=== PATIENT | male | born 1980 | race Caucasian/White ===

== ENCOUNTER 2024-05-16 15:50 | Emergency (ER) | payer OTHER, SELFPAY ==
[2024-05-16 15:51] VITALS: BP 156/95
[2024-05-16 17:14] VITALS: BMI 30.6
[2024-05-16 18:03] LABS: % Basophils 0.4 % (0-2); % Eosinophils 0.8 % (0-6); % Immature Granulocytes 0.5 % (0-0.5); % Lymphocytes 8.5 % (20.5-51.1); % Monocytes 8.1 % (1.7-9.3); % Neutrophils 81.7 % (42.2-75.2); Absolute Basophils 0.1 10^3/uL (0-0.2); Absolute Eosinophils 0.1 10^3/uL (0-0.7); Absolute Immature Granulocytes 0.1 10^3/uL (0-0.05); Absolute Lymphocytes 1.3 10^3/uL (1.2-3.4); Absolute Monocytes 1.2 10^3/uL (0.1-0.6); Absolute Neutrophils 11.9 10^3/uL (1.4-6.5); Hematocrit 41.5 % (39.0-52.0); Hemoglobin 14.6 g/dL (13.0-18.0); Mean Corp Hgb Conc. 35.2 g/dL (33.0-37.0); Mean Corpuscular Hgb 30.2 pg (27.0-31.0); Mean Corpuscular Volume 85.7 fL (80.0-94.0); Mean Platelet Volume 9.2 fL (7.4-10.4); Nucleated Red Blood Cells % 0 % (-); Platelet Count 354 10^3/uL (130-400); Red Blood Cell Count 4.84 10^6/uL (4.70-6.10); Red Cell Dist. Width 14.5 % (11.5-14.5); Urine Albumin Negative (Neg - Trace); Urine Bilirubin Negative (Negative); Urine Character Clear (Clear); Urine Color Yellow; Urine Glucose Negative (Negative); Urine Ketone Negative (Negative); Urine Leukocyte Trace (Negative); Urine Nitrite Negative (Negative); Urine Occult Blood Negative (Negative); Urine Specific Gravity 1.015 (<1.030); Urine Urobilinogen Negative (Neg - 1+); White Blood Cell Count 14.6 10^3/uL (4.8-10.8)
[2024-05-16 18:17] LABS: ALT (SGPT) 89 U/L (0-50); AST (SGOT) 71 U/L (17-59); Albumin 3.7 g/dl (3.5-5.0); Alkaline Phosphatase 60 U/L (38-126); Blood Urea Nitrogen 22 mg/dl (9-20); Calcium 10.5 mg/dl (8.4-10.2); Carbon Dioxide 31 mmol/L (22-30); Chloride 100 mmol/L (98-107); Estimated Creatinine Clearance 111 ml/min; Glucose 102 mg/dl (70-99); Potassium 4.2 mmol/L (3.5-5.1); Sodium 134 mmol/L (135-145); Total Protein 5.9 g/dl (6.3-8.2); eGFR > 60.00
[2024-05-16 18:18] LABS: Urine Amorphous Seen
[2024-05-16 18:19] LABS: Urine Red Blood Cell 0-2 /HPF (0-2)
[2024-05-16] MEDS: DILAUDID 0.5 MG IV (18:24)
[2024-05-16 19:45] VITALS: BP 148/84
--- NOTE | 2024-05-16 19:59 | ED.GENMED ---
History of Present Illness
General
Chief Complaint: Musculo-Skeletal Complaint
Source: patient and spouse
Exam Limitations: none
Time Seen by Provider: 05/16/24 17:24
Nursing documentation reviewed up to this point in time: agreed with
History of Present Illness
History of Present Illness:
43-year-old male presenting to the emergency department with concerns of significant discomfort to the left lower abdomen left groin area after tripping on a boat and [place] abducting his left leg causing a sharp pain to the groin area at the time.
Has been a significant amount of bruising since. Significant discomfort with ambulation. Denies any change in bowel or bladder function no nausea vomiting or fevers.
Review of Systems
Review of Systems
Allergies reviewed?: Yes
All Other Systems: ROS reviewed and negative except as documented in HPI and ROS
Phy Exam
Physical Exam
Physical Exam:
GENERAL: Alert , in no apparent distress
EYE: pupils equal and reactive
NECK: Supple, no significant adenopathy.
ENT: o/p clr, mmm.
CARDIAC: Regular rate and rhythm .
LUNGS: Clear breath sounds bilaterally, no acute respiratory distress, no wheezes/rales/rhonchi
ABDOMEN: Scrotal region. Soft, without focal tenderness, no r/g, no cvat
NEUROLOGICAL: Alert and oriented, no focal neuro deficits
SKIN: Warm and dry, skin intact.
MUSCULOSKELETAL: No edema, well perfused.
PSYCH: Normal and appropriate interaction.
Large mount of bruising to the left lower quadrant of the abdomen into the left upper thigh also extending into the groin and
Course
Orders/Labs/Results
Orders:
Orders
05/16/24 17:47
CT Abd/Pel (IV only)-[facility] only Urgent
Comment: Pklease scan through groin
Reason For Exam: llq pain left groin pain after injury on boat
05/16/24 17:55
CBC/With Diff [Complete Blood Count/With Diff] Urgent
CMP [Comprehensive Metabolic Panel] Urgent
Urinalysis Reflex To Culture Urgent
Date Specimen was Collected: 05/16/24
Time Specimen was Collected: 17:49
Urine Microscopic Reflex Cult Urgent
05/16/24 18:12
HYDROmorphone [Dilaudid] 0.5 mg IV NOW STA
Abnormal Lab Results
05/16/24
17:55
WBC 14.6 H 10^3/uL
(4.8-10.8)
Abs Immat Gran (auto) 0.1 H 10^3/uL
(0-0.05)
Absolute Neuts (auto) 11.9 H 10^3/uL
(1.4-6.5)
Absolute Monos (auto) 1.2 H 10^3/uL
(0.1-0.6)
Neutrophils % 81.7 H %
(42.2-75.2)
Lymphocytes % 8.5 L %
(20.5-51.1)
Sodium 134 L mmol/L
(135-145)
Carbon Dioxide 31 H mmol/L
(22-30)
BUN 22 H mg/dl
(9-20)
Glucose 102 H mg/dl
(70-99)
Calcium 10.5 H mg/dl
(8.4-10.2)
AST 71 H U/L
(17-59)
ALT 89 H U/L
(0-50)
Total Protein 5.9 L g/dl
(6.3-8.2)
Leukocyte Esterase Rfl Trace A
(Negative)
05/16/24 17:55
05/16/24 17:55
Vital Signs
Initial and Last Documented VS:
Initial Vital Signs
Temp Pulse Resp BP Pulse Ox
98.0 F 95 16 156/95 98
05/16/24 15:51 05/16/24 15:51 05/16/24 15:51 05/16/24 15:51 05/16/24 15:51
Last Documented Vital Signs
Temp Pulse Resp BP Pulse Ox
98.0 F 85 18 148/84 99
05/16/24 15:51 05/16/24 19:45 05/16/24 19:45 05/16/24 19:45 05/16/24 19:45
MDM/Problems Addressed
MDM/Problems Addressed:
43-year-old male presenting to the emergency department today with concerns of an injury from yesterday to his left upper thigh and left groin area. Here vital signs are normal patient in no acute distress does have a large amount of bruising to
the left groin region. White count of 14.6 other labs showing slightly elevated liver function tests and BUN. CT scan ordered for further assessment concerning significant discomfort to the area as well as tracking into the abdomen. CT without
emergent findings findings consistent with muscle tear he did have some mild lab abnormalities which was discussed with the patient he will follow-up closely for reassessment of this. Otherwise stable for discharge return precautions given.
*Critical Care Note
Total Time (30-74mins, 75-104mins- exclusive of procedures): Not Applicable
ED Attending Note
-
Portions of this chart may have been created with voice recognition software.� Occasional wrong word or��sound alike� substitutions may have occurred due to the inherent limitations of voice recognition software.
Discharge Plan
Departure
Patient Disposition: Home (Routine Discharge)
Date of Disposition: 05/16/24
Time of Disposition: 20:54
Patient with high blood pressure during this ER visit?: No
Condition: Good
Covid-19: Not Applicable
Discharge Problem:
Muscle tear, Elevated liver function tests
Instructions: Muscle Strain (DC)
Prescriptions:
New
oxycodone 5 mg capsule
5 mg PO Q8H PRN (Reason: Pain) Qty: 7 0RF
Referrals:
Ad Watkins MD [Family Provider] -
Sudeep Hayes MD [Active] - Follow up in 5-7 days
Stand Alone Forms: Return to Work
Activity Restrictions/Additional Instructions:
You came to the emergency department today with concerns of injury to your left groin region. Here you had a CT scan to ensure there is no deeper underlying injury. This appears to be consistent with a muscle tear. Please rest and ice the area
with hopeful improvement over the next week or so. You did have some subtle lab abnormalities that you should have close follow-up for and repeated labs. Return to the emergency department for any worsening, new or concerning symptoms.
Interventions
Interventions:
*Risk Screen - Suicide Last Done: 05/16/24 17:16
*General Assessment Last Done: 05/16/24 17:14
*Neglect/Abuse Screening Last Done: 05/16/24 17:16
*ED COVID-19 Vaccine History Last Done: 05/16/24 17:14
ED-Musculoskeletal Assessment Last Done: 05/16/24 17:30
Discharge Date and Time
Print Language: PERSIAN
== END 2024-05-16 21:37 | disposition home or self-care (01) ==
LOC: EMR 15:50
PROVIDERS: Physician Assistant; EMERGENCY PHYSICIAN Student in an Organized Health Care Education/Training Program; FAMILY PHYSICIAN Family Medicine
DX: S39.011A Strain of muscle, fascia and tendon of abdomen, initial encounter (principal); S76.912A Strain of unspecified muscles, fascia and tendons at thigh level, left thigh, initial encounter; W18.40XA Slipping, tripping and stumbling without falling, unspecified, initial encounter; R79.89 Other specified abnormal findings of blood chemistry
CPT/HCPCS: 99285; 96374; 74177; 80053; 81003; 81015; 85025; Q9967

== ENCOUNTER → 2024-07-11 13:38 | Outpatient (REF) | payer OTHER, SELFPAY | LOC: MRI 3T 13:38 | PROVIDERS: ATTENDING PHYSICIAN Student in an Organized Health Care Education/Training Program | DX: S76.012A Strain of muscle, fascia and tendon of left hip, initial encounter (principal) | CPT/HCPCS: 27093; 73525; 73722 ==